=== PATIENT | female | born 1995 | race Caucasian/White ===

== ENCOUNTER 2017-09-18 10:07 | Day surgery (SDC) | payer MEDICAID ==
[~2017-09-18 10:07] MED LIST: CEFAZOLIN 1 GM INJ; CEFAZOLIN 1 GM/50 ML (PMX) 50 ML IVPB; NALOXONE (0.4 MG/ML) INJ IV; SOD CHLORIDE 0.9% 1,000 ML IV
[2017-09-18] MEDS ORDERED: FENTAnyl 50 MCG/ML VIAL ×2 (11:49→14:24)
[2017-09-18] MEDS ORDERED: MIDAZOLAM 1 MG/ML 2 ML INJ (11:49)
[2017-09-18] MEDS ORDERED: LIDOCAINE 2% (SDV) 5 ML INJ (11:49)
[2017-09-18] MEDS ORDERED: NEOSTIGMINE 3 MG/3 ML SYRINGE (11:49)
[2017-09-18] MEDS ORDERED: GLYCOPYRROLATE 0.4 MG INJ (11:49)
[2017-09-18] MEDS ORDERED: ROCURONIUM 50 MG INJ (11:49)
[2017-09-18] MEDS ORDERED: PROPOFOL 20 ML (11:49)
[2017-09-18] MEDS ORDERED: ONDANSETRON 4 MG INJ ×2 (11:52→14:04)
[2017-09-18] MEDS ORDERED: DEXAMETHASONE 4 MG/ML 1 ML INJ (11:52)
[2017-09-18] MEDS ORDERED: HYDROmorphONE 1 MG/5 ML IV SYRINGE IV ×3 (14:04→14:30)
[2017-09-18] MEDS ORDERED: MEPERIDINE 25 MG INJ (14:24)
[2017-09-18] MEDS ORDERED: DIPHENHYDRAMINE 50 MG INJ IV (14:30)
[2017-09-18] MEDS ORDERED: OXYCODONE/ACETAMINOPHEN (5/325) TAB PO (14:30)
[2017-09-18] MEDS ORDERED: morphine (1 MG/ML) 10ML SYRINGE IV ×2 (14:30)
[2017-09-18] MEDS ORDERED: KETOROLAC 15 MG INJ IV (14:30)
[2017-09-18] MEDS ORDERED: FENTAnyl 50 MCG/ML VIAL IV (14:30)
[2017-09-18] MEDS: MEPERIDINE 25 MG INJ IV (14:34)
[2017-09-18] MEDS: HYDROmorphONE 1 MG/5 ML IV SYRINGE IV (14:34)
[2017-09-18] MEDS: ONDANSETRON 4 MG INJ IV (14:34)
[2017-09-18] MEDS: FENTAnyl 50 MCG/ML VIAL IV (14:44)
[2017-09-18] MEDS: OXYCODONE/ACETAMINOPHEN (5/325) TAB PO (16:36)
== END 2017-09-18 17:02 | disposition home or self-care (01) ==
LOC: SDS 10:07
DX: D24.2 Benign neoplasm of left breast (principal); J45.909 Unspecified asthma, uncomplicated
CPT/HCPCS: 19120; 88307